=== PATIENT | male | born 1975 | race American Indian/Alaskan Native ===

== ENCOUNTER 2017-06-07 22:58 | Emergency (ER) | payer MEDICAID ==
[2017-06-07 23:30] VITALS: BP 133/86
[2017-06-08 02:09] LABS: Bilirubin,Urine NEG (Negative); Blood,Urine NEG (Negative); Ketones,Urine TR mg/dL (Negative); Leukocyte Esterase,Urine SM (Negative); Mucus,Urine 2+ /HPF; Nitrite,Urine NEG (Negative)
== END 2017-06-08 03:30 | disposition left against medical advice (07) ==
LOC: ED 22:58
DX: M54.9 Dorsalgia, unspecified (principal); Z53.21 Procedure and treatment not carried out due to patient leaving prior to being seen by health care provider
CPT/HCPCS: 81001

== ENCOUNTER 2021-03-15 03:39 | Emergency (ER) | payer SELFPAY ==
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
[2021-03-15] MEDS ORDERED: MORPHINE 2 MG/1 ML INJ IV ONE (06:16)
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
[2021-03-15] MEDS ORDERED: HYDROmorphone 1 MG/1 ML INJ IV ONE (08:03)
[2021-03-15 09:06] VITALS: BP 138/83
== END 2021-03-15 09:09 | disposition other institution (70) ==
LOC: ED 03:39
DX: I50.9 Heart failure, unspecified (principal); Y04.8XXA Assault by other bodily force, initial encounter; Y93.89 Activity, other specified; Y92.89 Other specified places as the place of occurrence of the external cause; Y99.8 Other external cause status
CPT/HCPCS: 70486; 96374; 96375; 99285; J1170; J2270